=== PATIENT | male | born 1960 | race Caucasian/White ===

== ENCOUNTER 2024-06-22 21:33 | Emergency (ER) | payer OTHER ==
[2024-06-22 21:51] VITALS: BP 131/100
[2024-06-22] MEDS ORDERED: ATORVASTATIN CA10 MG PO (21:59)
[2024-06-22] MEDS ORDERED: GLIMEPIRIDE2 M1 PO (21:59)
[2024-06-22] MEDS ORDERED: Albuterol 0.083% Nebule (2.5 MG/3 ML) IH ONE (22:15)
[2024-06-22] MEDS ORDERED: Acetaminophen 500 MG TAB PO ONE (22:15)
[2024-06-22] MEDS ORDERED: RT ALBUTEROL CC18 GM IH (23:07)
[2024-06-22] MEDS ORDERED: TAMIFLU 75MG75 MG PO (23:07)
[2024-06-22] MEDS ORDERED: Oseltamivir 75 MG CAP PO ONE (23:15)
== END 2024-06-22 23:35 | disposition home or self-care (01) ==
LOC: ED 21:33
DX: J10.1 Influenza due to other identified influenza virus with other respiratory manifestations (principal); F17.200 Nicotine dependence, unspecified, uncomplicated